=== PATIENT | male | born 1990 | race Two or more races ===

== ENCOUNTER 2023-02-23 23:25 | Emergency (ER) | payer BC, OTHER ==
[~2023-02-23] VITALS: Ht 180.3 cm; Wt 70.0 kg
[2023-02-23 23:25] VITALS: BP 133/75; RESP 18; O2SAT 100
[2023-02-23 23:28] VITALS: PULSE 92
== END 2023-02-24 00:26 | disposition left against medical advice (07) ==
LOC: ER 23:28
DX: R07.89 Other chest pain (principal); Z53.21 Procedure and treatment not carried out due to patient leaving prior to being seen by health care provider
CPT/HCPCS: 93005